=== PATIENT | female | born 1990 | race Caucasian/White ===

== ENCOUNTER 2024-09-13 10:43 | Day surgery (SDC) | payer OTHER, MEDICAID ==
[2024-09-04 13:49] LABS: MEAN PLATELET VOLUME 8.2 FL (7.4-10.4); PRE OP HEMATOCRIT 36.0 % (35.0-45.0); PRE OP HEMOGLOBIN 12.0 g/dL (12.0-16.0); PRE OP PLATELET COUNT 346 X10'3 (140-440); PRE OP WHITE BLOOD COUNT 8.8 10'3 (4.8-10.8); RED CELL DISTRIBUTION WIDTH 14.7 % (11.5-14.5)
[2024-09-04 13:50] LABS: LEUKOCYTE ESTERASE ,URINE NEGATIVE (Neg); NITRITES, URINE NEGATIVE (Neg); OCCULT BLOOD,URINE TRACE-INTACT (Neg)
[2024-09-04 13:57] LABS: UA COLLECTION TYPE NON-SPECIFIED
[2024-09-04 13:58] LABS: SQUAMOUS EPITHELIAL CELL,UR MODERATE /LPF (FEW)
[2024-09-04 14:08] LABS: CREATININE 0.70 MG/DL (0.40-0.90); PRE OP ALT 33 U/L (30-65); PRE OP ANION GAP 6 (8-16); PRE OP AST 20 U/L (10-37); PRE OP BILIRUB, TOTAL 0.4 MG/DL (0.0-1.0); PRE OP GLUCOSE 83 MG/DL (70-104); PRE OP POTASSIUM 4.0 MMOL/L (3.4-5.1); PRE OP SODIUM 137 MMOL/L (135-145); TOTAL CARBON DIOXIDE 28.3 MMOL/L (24-32); eGFR > 90 ML/MIN
[2024-09-04 14:39] LABS: HCG SERUM QL NEGATIVE
[~2024-09-13] VITALS: Ht 157.5 cm; Wt 114.4 kg
[2024-09-13] VITALS (9 sets, daily range): BP systolic 93–119; BP diastolic 44–61; PULSE 65–89; RESP 11–22; TEMP 97.4; O2SAT 92–100
[~2024-09-13 10:43] MED LIST: IBUP-2697 PO
[2024-09-13] MEDS ORDERED: bacitracin 15gm ointment TP ONE (11:19)
[2024-09-13] MEDS ORDERED: BUPIVAcaine/PF 2.5mg/ml (0.25%) 10ml vial ONE (11:19)
[2024-09-13] MEDS: ringers solution, lacted 1,000 ML IV SCH (11:26)
[2024-09-13] MEDS: ceFAZolin 2gm/dext,iso 50mL 50 ML IV ONE (11:26)
[2024-09-13] MEDS ORDERED: morphine 4 MG/ML inj SYRINge IV PRN (12:05)
[2024-09-13] MEDS ORDERED: meperidine/PF 25mg/ml syringe IV PRN ×3 (12:05)
[2024-09-13] MEDS ORDERED: ringers solution, lacted 1,000 ML IV SCH (12:05)
[2024-09-13] MEDS ORDERED: enalaprilat 1.25mg/ml 2ml vial IV PRN (12:05)
[2024-09-13] MEDS ORDERED: labetalol 20mg/4ml (5mg/ml) syringe IV PRN (12:05)
[2024-09-13] MEDS ORDERED: MIDAZolam 1 MG/ML 5ML VIAL ONE (13:00)
[2024-09-13] MEDS ORDERED: fentaNYL/PF 50MCG/1 ML 2ML syringe ONE (13:00)
[2024-09-13] MEDS ORDERED: propofol inj 20 ML IV ONE ×2 (13:32)
[2024-09-13] MEDS ORDERED: ROPIVAcaine 0.5% (5mg/ml) 30ml vial ONE (13:32)
[2024-09-13] MEDS ORDERED: BUPIVAcaine/PF 7.5mg/ml (0.75%) 10ml vial ONE (13:32)
--- NOTE | 2024-09-13 14:04 | ANESTHESIA RECORDS ---
Nerve Block Providers to CC ~ Diagnosis: Nerve Block requested by: FERN QUILES DPSamantha Neuraxial/Peripheral Nerve Block requested for Post-operative analgesia by Physician above DIAGNOSIS: Post-operative pain. (Body Area) Shoulder: [ ] Arm: [ ] Hand: [ ] Hip: [ ] Knee: [ ] Ankle: [ left ] Foot: [ left ] Leg: [ ] Abdomen: [ ] Other: [ ] Post-operative pain expected to be/is inadequately managed by oral or IV medicines. Regional anesthetic expected to facilitate rehabilitation and/or discharge from facility. Other:[ ] Procedure Performed: Femoral / Saphenous: Left Popliteal Lateral: Left Time out Done?: Yes Time of Time out: 12:55 Procedure Details: PROCEDURE DETAILS: Risks, benefits and alternatives explained Informed consent obtained, and patient wishes to proceed Conscious sedation with indicated monitors Patient positioned, pertinent anatomy defined, sterile technique used Needle used: [ ] 3 1/8 inch Stimuplex Ultra 22ga [x ] 4 inch Stimuplex Ultra 20ga [ ] 6 inch Stimuplex Ultra 20ga [ ] 6 inch, Quikbloc over the needle catheter set 20ga [ ] 4 inch Quikbloc over the needle catheter set 20ga [ ]Other: [ ] Loss of twitch @ [ 0.34 ____]mA [x ] Single Injection [ ] Catheter Ultrasound Guidance Used: [x ] Yes [ ] No Attempts:[ once ] Medicines injected: [x ]Clonidine Amt:[____100 mcgs ] [x ]Dexamethasone Amt:[__5 mgs ] [x ]Ropivacaine Amt:[ 0.5% 30 cc ] [x ]Bupivacaine Amt:[ 0.375% 16 cc ] [ ]Lidocaine Amt:[ ] [ ]Exparel 1.33%:[ ] [ ]Epinephrine Amt[ ] [ ]Other: [ ] Intermittent aspiration during local anesthetic administration No symptoms of intraneural or intravenous injection Patient tolerated procedure well Comments Left Popliteal fossa Block Pt in Rt lateral position with Left Leg flexed at 90 Degrees. Lateral approach. Ultrasound probe placed back of thigh 2 inches above the knee joint. Easy visualization of the Sciatic nerve. 1% xylocaine local anesthetic. Easy visualization of Spreading of local anesthetic anterior and posterior to the Sciatic nerve sub paraneurally inside sciatic nerve sheath. Meaningful conversation t throughout. No Pain or discomfort during injection. Lt Adductor Canal blk Procedure done before surgery under General anesthesia. Pt supine with Lt leg rotated to Lt slightly. Easy visualization of Adductor Canal with ultra sound anterolateral to Femoral artery at the junction of upper and middle third of thigh. Able to see the tip of the needle and injected local anesthetic with the ultrasound. MILY TORRES MD Sep 13, 2024 14:04
[2024-09-13] MEDS ORDERED: morphine 10mg/ml inj. ONE (14:58)
[2024-09-13] MEDS: ondansetron/PF 4mg/2ml inj IV PRN (15:51)
[2024-09-13] MEDS: ondansetron 4mg rapidly disintigrating tab PO ONE (17:03)
== END 2024-09-13 17:07 | disposition home or self-care (01) ==
LOC: PAS 10:43
PROVIDERS: ATTEND Podiatrist Foot & Ankle Surgery
DX: M19.072 Primary osteoarthritis, left ankle and foot (principal); M25.472 Effusion, left ankle; M79.672 Pain in left foot; G89.18 Other acute postprocedural pain; E66.01 Morbid (severe) obesity due to excess calories; Z87.891 Personal history of nicotine dependence; Z79.1 Long term (current) use of non-steroidal anti-inflammatories (NSAID); Z90.49 Acquired absence of other specified parts of digestive tract; Z98.890 Other specified postprocedural states; Z68.42 Body mass index [BMI] 45.0-49.9, adult
CPT/HCPCS: 20902; 27637; 29898; 36415; 64445; 64447; 73600; 80053; 81001; 82948; 84703; 85025; A6222; C1713; J0690; J2250; J2270; J2274; J2405; J2704; J2795; J3010; J3490; J7030; J7060; J7120; Z7506; Z7508; Z7512; 76000; A4215; A4618; A6449; A7000